=== PATIENT | female | born 1980 | race Caucasian/White ===

== ENCOUNTER 2018-06-18 14:32 | Emergency (ER) | payer MEDICAID, OTHER ==
[~2018-06-18] VITALS: Ht 175.3 cm; Wt 80.0 kg
[~2018-06-18 14:32] MED LIST: TOP100T PO
[2018-06-18 14:36] VITALS: BP 113/65
== END 2018-06-18 15:33 | disposition home or self-care (01) ==
LOC: ER 14:33
DX: S00.10XA Contusion of unspecified eyelid and periocular area, initial encounter (principal); R51 Headache; F12.10 Cannabis abuse, uncomplicated; Z88.1 Allergy status to other antibiotic agents; Z88.5 Allergy status to narcotic agent; W19.XXXA Unspecified fall, initial encounter; Y93.89 Activity, other specified; Y92.89 Other specified places as the place of occurrence of the external cause; Y99.8 Other external cause status
CPT/HCPCS: 70200; 99284

== ENCOUNTER 2020-04-07 13:50 | Outpatient (CLI) | payer MEDICAID ==
[~2020-04-07] VITALS: Ht 175.3 cm; Wt 86.2 kg
[2020-04-07] MEDS ORDERED: albuterol 2.5 MG/3 ML nebule NEB ONE (14:25)
== END 2020-04-07 23:59 | disposition home or self-care (01) ==
LOC: RT 13:50
PROVIDERS: ATTEND Family Medicine
DX: J98.8 Other specified respiratory disorders (principal); R94.2 Abnormal results of pulmonary function studies
CPT/HCPCS: 94060; 94760

== ENCOUNTER 2022-04-26 20:43 | Emergency (ER) | payer MEDICAID ==
[~2022-04-26] VITALS: Ht 171.4 cm; Wt 89.0 kg
[2022-04-26 21:40] LABS: BASOPHILS # (AUTO) 0.1 X10'3 (0-0.2); BASOPHILS % (AUTO) 0.4 % (0-1); EOSINOPHILS # (AUTO) 0.1 X10'3 (0-0.9); EOSINOPHILS % (AUTO) 1.2 % (0-6); HEMATOCRIT 36.6 % (35.0-45.0); HEMOGLOBIN 12.4 g/dl (12.0-16.0); LYMPHOCYTES # (AUTO) 2.2 X10'3 (1.1-4.8); LYMPHOCYTES % (AUTO) 18.2 % (21-51); MEAN CORPUSCULAR HEMOGLOBIN 30.8 PG (27.0-31.0); MEAN CORPUSCULAR HGB CONC 33.9 g/dL (33.0-36.5); MEAN CORPUSCULAR VOLUME 90.7 FL (78-98); MONOCYTES # (AUTO) 0.6 X10'3 (0-0.9); MONOCYTES % (AUTO) 4.7 % (2-12); NEUTROPHILS # (AUTO) 9.3 X10'3 (1.8-7.7); NEUTROPHILS % (AUTO) 75.5 % (42-75); PLATELET COUNT 261 X10'3 (140-440); RED BLOOD COUNT 4.03 X10'6 (4.20-5.60); RED CELL DISTRIBUTION WIDTH 12.2 % (11.5-14.5); WHITE BLOOD COUNT 12.3 X10'3 (4.5-11.0)
[2022-04-26 21:51] LABS: ALANINE AMINOTRANSFERASE 23 U/L (12-78); ALBUMIN 3.8 G/DL (3.4-5.0); ALBUMIN/GLOBULIN RATIO 1.1 (1.1-1.5); ALKALINE PHOSPHATASE 73 IU/L (46-116); ANION GAP 10 (8-16); ASPARTATE AMINO TRANSFERASE 20 U/L (10-37); BILIRUBIN,TOTAL 0.2 MG/DL (0.1-1.0); BLOOD UREA NITROGEN 18 MG/DL (7-18); BUN/CREATININE RATIO 21.2 (6.6-38.0); CALCIUM 8.7 MG/DL (8.5-10.1); CHLORIDE 111 MMOL/L (99-107); CREATININE 0.85 MG/DL (0.40-0.90); GLUCOSE 111 MG/DL (70-104); LIPASE 86 U/L (73-393); POTASSIUM 3.9 MMOL/L (3.5-5.1); SODIUM 144 MMOL/L (135-145); TOTAL CARBON DIOXIDE 22.7 MMOL/L (24-32); TOTAL PROTEIN 7.2 G/DL (6.4-8.2); eGFR 74 ML/MIN
[2022-04-26 23:36] LABS: URINE HCG NEGATIVE (NEG)
[2022-04-26 23:47] LABS: CLARITY,URINE CLEAR (Clear); COLOR,URINE YELLOW (Yellow); GLUCOSE, URINE NEGATIVE (Neg); KETONES,URINE TRACE mg/dl (Neg); LEUKOCYTE ESTERASE ,URINE NEGATIVE (Neg); NITRITES, URINE NEGATIVE (Neg); OCCULT BLOOD,URINE SMALL (Neg); PH,URINE 5.5 (4.8-8.0); PROTEIN,URINE NEGATIVE (Neg); UROBILINOGEN,URINE 0.2 E.U/dL (0.2-1.0)
[2022-04-26 23:51] LABS: UA COLLECTION TYPE CLN CATCH MIDSTREAM
[2022-04-26 23:54] LABS: BACTERIA,URINE FEW /HPF (Neg); CAL OXALATE CRYSTALS 1+ /HPF (NEGATIVE); RBC,URINE 0-2 /HPF (0-2); SQUAMOUS EPITHELIAL CELL,UR MODERATE /LPF (FEW); WBC,URINE 0-4 /HPF (0-4)
--- NOTE | 2022-04-27 03:57 | NUR ---
PULLED PT TO ROOM 18 TO AWAIT US. COMPLEX CASE MANAGER INFORMED THAT US HAS BEEN PAGED.
[2022-04-27] MEDS ORDERED: ibuprofen 200mg tablet PO ONE (05:25)
[2022-04-27] MEDS ORDERED: acetaminophen 325mg tablet PO ONE (05:25)
--- NOTE | 2022-04-27 06:05 | NUR ---
PT MOVED TO ROOM 13
[2022-04-27 06:09] VITALS: BP 109/72
[2022-04-27] MEDS ORDERED: sulfamethoxazole/trimethoprim DS (800/160mg) tablet PO ONE (07:40)
[2022-04-27] MEDS ORDERED: METR-159 PO (07:40)
[2022-04-27] MEDS ORDERED: CefTRIAXone 250MG IM Kit w/LIDOcaine IM ONE (07:40)
[2022-04-27] MEDS ORDERED: metroNIDAZOLE 500mg tablet PO ONE (07:40)
[2022-04-27] MEDS ORDERED: DOXY-411 PO (07:40)
== END 2022-04-27 08:22 | disposition home or self-care (01) ==
LOC: ER 20:43
DX: N73.9 Female pelvic inflammatory disease, unspecified (principal); R10.2 Pelvic and perineal pain; N93.8 Other specified abnormal uterine and vaginal bleeding; R10.84 Generalized abdominal pain; R11.0 Nausea; J45.909 Unspecified asthma, uncomplicated; F12.90 Cannabis use, unspecified, uncomplicated; Z86.69 Personal history of other diseases of the nervous system and sense organs; Z56.0 Unemployment, unspecified; Z88.1 Allergy status to other antibiotic agents; Z88.6 Allergy status to analgesic agent; Z88.8 Allergy status to other drugs, medicaments and biological substances; Z79.2 Long term (current) use of antibiotics; Z79.899 Other long term (current) drug therapy
CPT/HCPCS: 36415; 76856; 80053; 81001; 81025; 83690; 85025; 93976; 96372; 99284; J0696